=== PATIENT | female | born 1970 | race Two or more races ===

== ENCOUNTER 2018-11-26 09:01 | Day surgery (SDC) | payer OTHER ==
[~2018-11-26] VITALS: Ht 175.3 cm; Wt 103.4 kg
[2018-11-26] MEDS ORDERED: INSU100I33 SC (09:33)
[2018-11-26] MEDS ORDERED: INSU100C SQ (09:37)
[2018-11-26] MEDS ORDERED: ATOR40TA68 PO (09:38)
[2018-11-26] MEDS ORDERED: GABA-526 PO (09:39)
[2018-11-26] MEDS ORDERED: ASPI81TA52 PO (09:40)
[2018-11-26] MEDS ORDERED: CLON1PAT2 TD (09:40)
[2018-11-26] MEDS ORDERED: HEPARIN 1000 UNITS/NS (A-LINE) 1,000 ML ONE (09:53)
[2018-11-26] MEDS ORDERED: MIDAZOLAM 1 MG/ML 2 ML INJ ONE (09:53)
[2018-11-26] MEDS ORDERED: FENTAnyl 50 MCG/ML VIAL ONE (09:53)
[2018-11-26] MEDS ORDERED: LIDOCAINE 1% (MDV) 20 ML INJ ONE (09:53)
[2018-11-26] MEDS ORDERED: IODIXANOL LOCM 100 ML BTL ONE (09:53)
[2018-11-26 09:59] VITALS: BP 140/65; PULSE 82; RESP 18
[2018-11-26 10:04] VITALS: Ht 175.3 cm; Wt 103.4 kg
--- NOTE | 2018-11-26 10:47 | HPN ---
Date/Time of Note Date/Time of Note DATE: 11/26/18 TIME: 10:47 Interval H&P Admission Note Pt. seen H&P reviewed: No system changes HELEN DUARTE MD Nov 26, 2018 10:47
--- NOTE | 2018-11-26 10:49 | PDOCDIS ---
Discharge Instructions DIAGNOSIS Discharge Diagnosis ESRD CONDITION [id number] Patient Condition: [id number] Good HOME CARE INSTRUCTIONS: [id number] Special Diet: Adfha4c RENAL DIET ACTIVITY: [id number] Activity Restrictions: [id number] Slowly Increase Activity Rest between Activity Do not Drive Do not operate Machinery Do not operate Power Tool [id number] Bathing Restrictions: [id number] Sponge Bath FOLLOW UP/APPOINTMENTS Follow-up Plan FOLLOWUP IN TWO WEEKS MAY USE THE AVF FOR TWO NEEDLE CANNULATIONS HELEN DUARTE MD Nov 26, 2018 10:49
[2018-11-26 10:50] VITALS: BP 148/71; PULSE 72; RESP 20
--- NOTE | 2018-11-26 10:52 | SIPON ---
Date/Time of Note Date/Time of Note DATE: 11/26/18 TIME: 10:52 Operative Report Preoperative Diagnosis ESRD Postoperative Diagnosis SAME Operation/Procedure Performed LEFT ARM FISTULOGRAM Surgeon see signature line public health assistant NONE Anesthesia: moderate sedation Estimated blood loss: minimal Transfusion Required none Specimen NONE Grafts/Implants none Complications none HELEN DUARTE MD Nov 26, 2018 10:52
--- NOTE | 2018-11-26 11:44 | OPR ---
DATE OF OPERATION: 11/26/2018 SURGEON: Tomas Brennan MD PREOPERATIVE DIAGNOSES: 1. End-stage renal disease. 2. Malfunctioning left upper extremity fistula. POSTOPERATIVE DIAGNOSES: End-stage renal disease and malfunctioning left upper extremity fistula. ANESTHESIA: Local with moderate sedation. ESTIMATED BLOOD LOSS: Minimal. COMPLICATIONS: None. HEPARIN: As recorded. CONTRAST: As recorded. ACCESS: Left upper extremity 6-[place] sheath. CLOSURE: Manual compression. SEDATION: Under physician supervision, moderate sedation was administered intravenously under contin uous monitored by interventional team and attending physician. Pulse oximeter, heart rate, blood pre ssures were continuously monitored by interventional surgeon. The physician spent time was 30 minute s of [id number]-[id number] time with the patient. INDICATIONS: This is a 48-year-old female with a history of end-stage renal disease, who has a left chest wall catheter, who underwent a left arm brachiocephalic fistula creation that appears to have m atured. During her dialysis session, it appears that the patient has significant trouble with cannul ation and being unable to undergo 2 needle cannulation and tolerate it. Upon examination patient did have some weakened bruit in the upper part of the arm and has large tributaries that are identified on examination. Further, the patient had an ultrasound identified new intimal hyperplasia. The dhaval ent is unable to risk and benefits were discussed with the patient. Reason for a fistulogram and pos sible intervention was there. The patient understood all that is involved and agreed to proceed. Ri sks including but not limited to bleeding, thrombosis, embolization, myocardial infarction, , st roke, device malfunction, infection, nephrotoxins were discussed. The patient agreed to proceed. PROCEDURE: 1. Ultrasound-guided axis of the left upper extremity fistula. 2. Left upper extremity fistulogram. DESCRIPTION OF PROCEDURE: The patient was brought into the angio suite and positioned in supine posi tion on the fluoroscopic table. Sedation was administered without any complications. The left upper extremity was then shaved, prepped and draped in the usual standard sterile fashion. Time out and a ppropriate site was marked and confirmed. Local anesthesia was infiltrated in the region of the left upper extremity fistula. The fistula was then cannulated with a microcatheter needle under ultraso und guidance and a guidewire was advanced into the cephalic vein under fluoroscopic guidance. The ne edle was removed and a microcatheter was then placed. A multistation left upper extremity fistulogra m was then performed, which identified patient having a patent fistula; however, there were areas of very large tributaries that were diverting flow away from the main channel. Her central venous syste m appeared to have some mild stenosis but nothing significant. Her Perm-A-Cath was in adequate posit ion. At this point, the decision was made to attempt to see if we are able to core embolize the larg e tributary near the anastomosis; however, based on the angulation of where the takeoff of the branch was, it was deemed to be difficult after we had exchanged our microcatheter to a 5-[place] sheath ove r a [employer] wire. Multiple attempts were made to cannulate; however, this was unsuccessful. At this point, based on the fluoroscopic imaging, the fistula had adequate flow through the main channel, we decided to have the marked areas where the patient should have her fistula cannulated and revaluate in 2 weeks. At this point, all catheters and wires were removed. Patient tolerated the procedure we ll and was taken to the postanesthesia care unit in stable condition. PLAN: We plan to have the patient began in the areas that were marked on the arm and revaluate if we do, in fact, need to coil embolize these branches as she does have a weakened bruit and thrill in th e upper aspect of the arm. Dictated By: TOMAS MCKENZIE/ANTONIO Conf#: [id number] DID#: [id number]
--- NOTE | 2018-11-26 19:51 | RADRPT ---
Vent Rate: 75 bpm RR Interval: 0 msec [place] Interval: 188 msec QRS Duration: 88 msec QT Interval: 410 msec QTC Interval: 457 msec P-R-T [place]: 28 - -22 - 54 degrees Normal sinus rhythm Normal ECG Electronically Signed By: Mario Solomon [id number]
== END 2018-11-26 11:13 | disposition home or self-care (01) ==
LOC: SDS 09:01
PROVIDERS: ATTEND Student in an Organized Health Care Education/Training Program
DX: T82.590A Other mechanical complication of surgically created arteriovenous fistula, initial encounter (principal); Y84.1 Kidney dialysis as the cause of abnormal reaction of the patient, or of later complication, without mention of misadventure at the time of the procedure; I12.0 Hypertensive chronic kidney disease with stage 5 chronic kidney disease or end stage renal disease; N18.6 End stage renal disease
CPT/HCPCS: 36901; 80048; 82962; 85025; 85610; 85730; 93005; C1887; C1894; J1644; J2250; J3010; Q9967; Z7610